=== PATIENT | female | born 1985 | race Two or more races ===

== ENCOUNTER → 2023-08-25 16:39 | Outpatient (REF) | payer BC, SELFPAY ==
[2023-08-25 18:01] LABS: 24 Hour Urine Total Volume 2200 ml
[2023-08-25 19:04] LABS: 24 Hour Urine Calcium 195.8 mg/day; 24 Hour Urine Creatinine 0.827 gm/day (0.8-1.8); Urine Calcium 8.9 mg/dl
== END ==
LOC: REG 16:39
PROVIDERS: ATTENDING PHYSICIAN Surgery; FAMILY PHYSICIAN Family Medicine
DX: E21.0 Primary hyperparathyroidism (principal)
CPT/HCPCS: 81050; 82340; 82570

== ENCOUNTER → 2023-08-27 08:55 | Outpatient (REF) | payer BC, SELFPAY ==
[2023-08-27 10:08] LABS: HCG, Serum Qualitative Screen Negative
== END ==
LOC: RAD 08:55
PROVIDERS: Radiology Diagnostic Radiology; ATTENDING PHYSICIAN Surgery; FAMILY PHYSICIAN Family Medicine
DX: E21.0 Primary hyperparathyroidism (principal)
CPT/HCPCS: 36415; 78071; 84703; A9500

== ENCOUNTER 2023-10-14 06:07 | Day surgery (SDC) | payer BC, SELFPAY ==
[2023-10-06 07:49] VITALS: BMI 21.6
[2023-10-06 09:39] LABS: INR 1.08; PT 13.8 Sec (11.4-14.6)
[2023-10-06 09:40] LABS: APTT 31.8 Sec (23.4-35.0)
[2023-10-06 09:53] LABS: ALT (SGPT) 20 U/L (0-35); AST (SGOT) 29 U/L (14-36); Albumin 4.8 g/dl (3.5-5.0); Alkaline Phosphatase 84 U/L (38-126); Blood Urea Nitrogen 19 mg/dl (7-17); Calcium 11.4 mg/dl (8.4-10.2); Carbon Dioxide 26 mmol/L (22-30); Chloride 105 mmol/L (98-107); Estimated Creatinine Clearance 104 ml/min; Glucose 80 mg/dl (70-99); Hematocrit 40.6 % (37.0-47.0); Hemoglobin 13.5 g/dL (12.0-16.0); Mean Corp Hgb Conc. 33.3 g/dL (33.0-37.0); Mean Corpuscular Hgb 30.8 pg (27.0-31.0); Mean Corpuscular Volume 92.7 fL (81.0-99.0); Mean Platelet Volume 12.1 fL (7.4-10.4); Platelet Count 208 10^3/uL (130-400); Potassium 4.8 mmol/L (3.5-5.1); Red Blood Cell Count 4.38 10^6/uL (4.20-5.40); Red Cell Dist. Width 12.4 % (11.5-14.5); Sodium 139 mmol/L (135-145); Total Bilirubin 1.8 mg/dl (0.2-1.3); Total Protein 7.2 g/dl (6.3-8.2); White Blood Cell Count 5.7 10^3/uL (4.8-10.8); eGFR > 60.00
[2023-10-14] VITALS (11 sets, daily range): BP systolic 106–127; BP diastolic 73–86; BMI 21.1; BMI 21.6
[2023-10-14] MEDS: TYLENOL 1000 MG PO (07:08)
[2023-10-14] MEDS: NEURONTIN 300 MG PO (07:08)
[2023-10-14] MEDS: HEPARIN 5000 UNITS SC (07:22)
[2023-10-14] MEDS: NORMOSOL-R 1000 IV (07:26)
[2023-10-14 08:32] LABS: Turbo PTH 187.3 pg/ml (13.6-85.8)
[2023-10-14 09:22] LABS: Turbo PTH 17.6 pg/ml (13.6-85.8)
--- NOTE | 2023-10-14 09:46 | OR.RPT ---
Operative Report
Operative Report
Patient Name: Brendan Cohen
Date of : 1985
Date of Operation: October 14, 2023
Preoperative Diagnosis: �Parathyroid hyperparathyroidism - E210
Postoperative Diagnosis: Same
Surgeon: Eulalio Coker M.D.
Operation: Minimally Invasive Left Superior Parathyroidectomy - 03118
Anesthesia: GET
Estimated Blood Loss: 2 cc
Drains: None
Specimen: Left superior neck nodule, rule out parathyroid adenoma
Complications: �None
Procedure:
The patient was taken to the operating room and placed in the usual supine position. After adequate general endotracheal anesthesia was established, the patient's neck was extended, prepped, and draped in the typical sterile fashion. A 4 cm
transcervical incision was made two fingerbreadths above the sternal notch. The skin incision was made with the #15 blade, and this was taken through the skin into the subcutaneous tissue. The underlying platysma muscle was divided, and subplatysmal
flaps were created superiorly to the thyroid cartilage and inferiorly to the sternal notch. Strap muscles were identified and at the midline. The attention was turned to the left side of the neck. The left thyroid lobe was mobilized
medially. During this process, the left recurrent laryngeal nerve was identified and preserved throughout the surgery. The left upper neck nodule was identified and noted to be enlarged, excised, and sent to the pathology department, which showed a
hypercellular parathyroid gland. The normal-appearing left inferior parathyroid gland was identified behind the left superior pole and preserved. The intraoperative PTH levels normalized. After obtaining adequate hemostasis, the strap muscles were
reapproximated with #3-0 Vicryl in a running fashion. The platysma muscle was reapproximated with #3-0 Vicryl in an interrupted fashion, and the skin was approximated with #4-0 Monocryl in a running subcuticular fashion. The Steri-Strips and sterile
dressings were placed. The patient tolerated the procedure well. The final instrument, needle, and sponge counts were correct. The patient was extubated and transferred to the PACU.
[2023-10-14] MEDS: SUBLIMAZE 50 MCG IV (10:26)
== END 2023-10-14 12:15 | disposition home or self-care (01) ==
LOC: SDS 06:07
PROVIDERS: ATTENDING PHYSICIAN Surgery; FAMILY PHYSICIAN Family Medicine
DX: D35.1 Benign neoplasm of parathyroid gland (principal); E21.0 Primary hyperparathyroidism
CPT/HCPCS: 60500; 88305; 88332; 36415; 80053; 83970; 85027; 85610; 85730; 88331; 93005